=== PATIENT | female | born 1960 | race Caucasian/White ===

== ENCOUNTER → 2021-11-22 | Outpatient (CLI) | payer OTHER ==
[~2021-11-22] MED LIST: CARAFATE1 GM PO; EFFEXOR XR150 MG PO; EQUATE ALLERGY PO; FLUOXETINE HCL10 MG PO; LIPITOR TAB 2020 MG PO; LISINOPRIL-HCT1 EAC1 PO; MELATONIN5 M2 PO; MINIPRESS5 MG PO; MIRALAX 119 GR119 GM GT; MS CONTIN15 MG PO; MULTIVITAMINS1 EAC1 PO; NEXIUM40 MG PO; OXYCODONE HCL15 MG PO; PRINIVIL20 MG PO; SALONPAS DEEP R78 GM TP; SEROQUEL300 MG PO; VISTARIL 50 MG50 MG PO; VITAMIN C 500500 MG PO; VOLTAREN EC 7575 MG PO; ZANAFLEX4 MG PO; [UNRECOGNIZED DRUG - OTHER]
== END ==
LOC: SLEEP 14:24
DX: G47.33 Obstructive sleep apnea (adult) (pediatric) (principal)
CPT/HCPCS: 95810